=== PATIENT | male | born 2000 ===

== ENCOUNTER 2022-02-06 13:21 | Emergency (ER) | payer SELFPAY ==
[2022-02-06] MEDS ORDERED: SODIUM CHLORIDE 0.9% 1000 ML 1,000 ML ONE (13:37)
[2022-02-06] MEDS ORDERED: SODIUM CHLORIDE 0.9% 1000 ML 1,000 ML IV ONE (13:47)
[2022-02-06] MEDS ORDERED: TETANUS,DIPH,PERTUSS(ACELL) VACCINE 0.5 ML SYRINGE IM ONE (13:47)
--- NOTE | 2022-02-06 14:55 | Emergency Department Report ---
- General Chief Complaint: Wound/Laceration Stated Complaint: RT HAND INJURY Time Seen by Provider: 02/06/22 13:32 Source: patient Mode of arrival: Ambulatory Limitations: No Limitations - History of Present Illness Initial Comments: 21 yo male presents to ED for evaluation of right hand laceration. Patient presents with hand in bag with about 1 liter of blood in bag. Patient is noted to be pale and diaphoretic. -: Sudden Extremity Location: Right: Hand Place: work Patient Tetanus UTD: No Context: accidental Associated Symptoms: pain. denies: loss of feeling/numbness, suspect foreign body present, weakness followed by dizziness, nausea/vomiting, fever - Related Data Allergies Allergy/AdvReac Type Severity Reaction Status Date / Time No Known Allergies Allergy Verified 02/06/22 13:29 ED Review of Systems ROS: Stated complaint: RT HAND INJURY Other details as noted in HPI Comment: All other systems reviewed and negative Constitutional: weakness. denies: chills, fever Eyes: denies: eye pain ENT: denies: ear pain Respiratory: denies: shortness of breath Cardiovascular: denies: chest pain, palpitations Gastrointestinal: denies: abdominal pain, nausea, vomiting Genitourinary: denies: urgency, dysuria Musculoskeletal: denies: back pain Skin: denies: rash Neurological: weakness. denies: headache ED Past Medical Hx - Past Medical History Previous Medical History?: No - Surgical History Past Surgical History?: No - Social History Smoking Status: Never Smoker ED Physical Exam - General Limitations: No Limitations General appearance: alert, in no apparent distress - Head Head exam: Present: atraumatic, normocephalic - Eye Eye exam: Present: normal appearance. Absent: conjunctival injection - Neck Neck exam: Present: normal inspection - Respiratory Respiratory exam: Present: normal lung sounds bilaterally. Absent: respiratory distress, wheezes, rales, rhonchi, stridor, chest wall tenderness - Cardiovascular Cardiovascular Exam: Present: regular rate, normal heart sounds - GI/Abdominal GI/Abdominal exam: Present: soft, normal bowel sounds. Absent: distended, tenderness, guarding, rebound, rigid - Extremities Exam Extremities exam: Absent: normal inspection - Expanded Upper Extremity Exam Right Hand Wrist exam: Present: tenderness, laceration. Absent: normal inspection Hand L/R Back: 1 - laceration with bleeding noted. Neuro motor exam: Present: wrist extension intact, thumb opposition intact, fingers 2-5 abduction intact Vascular: Present: normal capillary refill, radial pulse. Absent: vascular compromise, Pallo, pulse deficit radial art - Back Exam Back exam: Present: normal inspection - Neurological Exam Neurological exam: Present: alert, oriented X3 - Psychiatric Psychiatric exam: Present: normal affect, normal mood - Skin Skin exam: Present: warm, dry, normal color ED Course Vital Signs 02/06/22 02/06/22 02/06/22 13:37 13:51 15:16 Temperature 97.6 F Pulse Rate 95 H 68 Respiratory 20 20 18 Rate Blood Pressure 77/37 98/50 126/78 [Left] O2 Sat by Pulse 100 100 100 Oximetry - Laceration /Wound Repair Right Posterior Hand Wound Location: upper extremity (right posterior hand) Wound's Depth, Shape: into muscle, linear Wound Explored: clean Irrigated w/ Saline (ccs): 100 Betadine Prep?: No Anesthesia: Lidocaine w/ Epi Volume Anesthetic (ccs): 5 Wound Repaired With: sutures Suture Size/Type: 3:0 (vicryl) Number of Sutures: 4 Layer Closure?: Yes Deep Layer Suture Size/Type: 3:0 (vicryl) Number Deep Layer Sutures: 3 Sterile Dressing Applied?: Yes Progress: Patient tolerated well. ED Medical Decision Making - Medical Decision Making 26-year-old black male with a past medical history of asthma, schizophrenia, and anxiety presents to the emergency department for evaluation of body aches. He states that he started having body aches this morning, did not take any medications for his symptoms, and decided to come here for further evaluation Right hand laceration noted to be bleeding, and patient is pale and diaphoretic with hypotension. Patient was given 1 liter of NS and had improvement in color and blood pressure. Laceration repaired per my procedure note. Tdap updated. Patient states that he feels better. He was discharged home to follow up with hand surgeon if no improvement or worsening symptoms or return to ED as needed. He verbalized understanding of and agreement with plan of care. Critical care attestation.: If time is entered above; I have spent that time in minutes in the direct care of this critically ill patient, excluding procedure time. ED Disposition Clinical Impression: Hand laceration Qualifiers: Encounter type: initial encounter Foreign body presence: with foreign body Laterality: right Qualified Code(s): S61.421A - Laceration with foreign body of right hand, initial encounter Disposition: 01 HOME / SELF CARE / HOMELESS Is pt being admited?: No Does the pt Need Aspirin: No Condition: Stable Instructions: Sutured Wound Care, [id number] Additional Instructions: Leave stitches in place, and they will dissolve in 2 to 3 weeks. If you develop a fever, swelling to area, or red streaks from the area return to the emergency department immediately to have wound looked at. Follow-up with your primary care provider or hand surgeon as needed. Return to the emergency department as needed. Referrals: GABRIELLA THOMAS MD [Referring] - 3-5 Days NATHAN MONTENEGRO MD [Primary Care Provider] - 3-5 Days Forms: Work/School Release Form(ED) Time of Disposition: 14:55 Print Language: MALAWIAN
[2022-02-06 15:17] VITALS: BP 126/78
== END 2022-02-06 15:45 | disposition home or self-care (01) ==
LOC: ED 13:21
DX: S61.411A Laceration without foreign body of right hand, initial encounter (principal); X58.XXXA Exposure to other specified factors, initial encounter; Y93.89 Activity, other specified; Y92.89 Other specified places as the place of occurrence of the external cause; Y99.8 Other external cause status
CPT/HCPCS: 12042; 90471; 90715; 96360; 99282; J7030